=== PATIENT | female | born 2000 | race Caucasian/White ===

== ENCOUNTER 2022-03-12 09:10 | Emergency (ER) | payer MEDICAID ==
[~2022-03-12] VITALS: Ht 162.6 cm; Wt 86.4 kg
[2022-03-12] MEDS ORDERED: MORPHINE SULFATE 4 MG/ML SYR/VIAL IV ONE (10:45)
[2022-03-12] MEDS ORDERED: ONDANSETRON HCL 4 MG/2 ML VIAL IV ONE (10:45)
[2022-03-12 11:49] VITALS: BP 117/80
== END 2022-03-12 13:28 | disposition short-term general hospital (02) ==
LOC: ER 09:10
DX: S62.102A Fracture of unspecified carpal bone, left wrist, initial encounter for closed fracture (principal); S32.9XXA Fracture of unspecified parts of lumbosacral spine and pelvis, initial encounter for closed fracture; W13.2XXA Fall from, out of or through roof, initial encounter; Y93.89 Activity, other specified; Y92.89 Other specified places as the place of occurrence of the external cause; Y99.8 Other external cause status
CPT/HCPCS: 70450; 72125; 72192; 73110; 73502; 73552; 96374; 96375; 99285; J2270; J2405